=== PATIENT | female | born 1975 | race Caucasian/White ===

== ENCOUNTER 2019-07-11 05:19 | Day surgery (SDC) | payer MEDICAID ==
--- NOTE | 2019-07-10 09:38 | NUR ---
Left message on pt's voicemail in regards to procedure time and instructions. Encourage return phone call to review history.
[2019-07-11] VITALS (10 sets, daily range): BP systolic 109–137; BP diastolic 63–723; PULSE 62–76; TEMP 98.5
[~2019-07-11] VITALS: Ht 162.6 cm; Wt 110.3 kg
[2019-07-11] MEDS ORDERED: PRINZIDE 12.5 M1 TAB PO (06:14)
[2019-07-11] MEDS ORDERED: VITAMIN D 50,1.25 MG PO (06:15)
[2019-07-11] MEDS ORDERED: CYMBALTA 60MG60 MG PO (06:16)
[2019-07-11] MEDS ORDERED: ZANAFLEX 4MG TAB4 MG PO (06:16)
[2019-07-11] MEDS ORDERED: XANAX 0.5MG0.5 MG PO (06:17)
[2019-07-11] MEDS ORDERED: LEVOXYL0.15 MG PO (06:18)
[2019-07-11 06:58] LABS: HEMOGLOBIN 13.5 g/dl (12.5-16.0); MEAN CELL VOLUME 96 fl (80.0-100.0); MEAN CORPUSCULAR HEMOGLOBIN 32 pg (27.0-31.0); MEAN CORPUSCULAR HGB CONC 34 g/dl (33.0-37.0); MEAN PLATELET VOLUME 10.3 fl (7.4-10.4); PLATELET COUNT 271 K/mm3 (130-400); RED BLOOD COUNT 4.17 M/mm3 (4.10-5.30); REDCELL DISTRIBUTION WIDTH-CV 13.7 % (11.5-14.5)
[2019-07-11] MEDS ORDERED: ASPIRIN E.C. 8181 MG PO (07:08)
[2019-07-11 07:10] LABS: INR 0.9 (0.8-3.0); PROTHROMBIN TIME 10.9 SECONDS (9.7-12.8)
[2019-07-11 07:12] LABS: CALCIUM 9.4 mg/dL (8.4-10.2); CREATININE, serum 0.66 (0.52-1.25); PARTIAL THROMBOPLASTIN TIME 28.7 SECONDS (26.0-37.0); POTASSIUM 3.6 mmol/L (3.4-5.0)
--- NOTE | 2019-07-11 09:00 | NUR ---
SEE MERGE DOCUMENTATION FOR MEDICATION ADMINISTRATION TIMES AND INTRA/POST PROCEDURE SEDATION ASSESSMENTS.
[2019-07-11] MEDS ORDERED: NORVASC 5MG5 MG/TAB PO (09:35)
[2019-07-11] MEDS ORDERED: OMEGA-3 1000 MG1 CAP PO (09:35)
--- NOTE | 2019-07-11 09:50 | NUR ---
Pt back from [employer], bedside report from [facility]. Pt is tearful due to discomfort in rt forearm from elbow to thumb. pt reportedly had vasospasm during heart cath. TR band in place, it was applied at 0932, 13 ml air instilled. site looks good, no bleeding nor hematoma, cms intact distal. rt forearm measures 105/8-103/4" at thickest part.
--- NOTE | 2019-07-11 10:45 | NUR ---
PT doing well, her rt forearm measured 10 1/2 " at 1010, it feels softer and less tense at this time. pt still does have 5/10 pain to rt forearm. pt will be medicated as ordered for pain. pt has been able to order lunch. [facility], [place]
--- NOTE | 2019-07-11 12:00 | NUR ---
1 CC REMOVED FROM TR BAND. CMS REMAINS INTACT DISTAL, NO HEMATOMA OR BLEEDING OBSERVED. PT FEELING BETTER, PAIN MED HAS BEEN EFFECTIVE, NO PAIN WITH PALP OF RT FOREARM. WCTM. DAUGHTERS X2 AT BS WITH PATIENT
--- NOTE | 2019-07-11 12:51 | NUR ---
2 CC PULLED FROM BALLOON AT 1241, CMS REMAINS INTACT, NO BLEEDING NOR HEMATOMA.
--- NOTE | 2019-07-11 13:07 | NUR ---
3 CC REMOVED FROM BALLOON AT 1305. SITE CONTINUES TO LOOK GOOD WITHOUT HEMATOMA OR BLEEDING.
--- NOTE | 2019-07-11 13:30 | NUR ---
remainder of air removed from TR band, site free from bleeding or hematoma, bandaid applied, splint provided to pt and she is wearing it to remind her not to use her wrist too much. We have reviewed dc instructions r/t radial access and moderate sedation, also dc/fu and new rx instructions. Pt verbalized understanding and denies questions. written instructions were provided. saline lock to left hand was dc'd, cath intact, dressing was applied. pt was able to eat, drink during her recovery, she was ambulatory with steady gait to restroom prior to her departure. at 1350 she was escorted to exit in company of her fiance and 2 of her daughters.
== END 2019-07-11 13:50 | disposition home or self-care (01) ==
LOC: COL.CAR 05:19
PROVIDERS: Internal Medicine Cardiovascular Disease
DX: R94.39 Abnormal result of other cardiovascular function study (principal); J45.909 Unspecified asthma, uncomplicated; E78.2 Mixed hyperlipidemia; I10 Essential (primary) hypertension; E07.9 Disorder of thyroid, unspecified; E55.9 Vitamin D deficiency, unspecified; Z90.49 Acquired absence of other specified parts of digestive tract; Z98.51 Tubal ligation status; Z79.899 Other long term (current) drug therapy; Z87.891 Personal history of nicotine dependence; Z83.6 Family history of other diseases of the respiratory system; Z82.49 Family history of ischemic heart disease and other diseases of the circulatory system
CPT/HCPCS: J1644; J2250; J3010; Q9967